=== PATIENT | male | born 1955 | race African-American/Black ===

== ENCOUNTER 2016-10-27 12:14 | Emergency (ER) | payer OTHER, MEDICAID ==
[~2016-10-27] VITALS: Ht 175.3 cm; Wt 109.0 kg
[~2016-10-27 12:14] MED LIST: HYDR-4133 PO; LOSA25TA12 PO
[2016-10-27] MEDS ORDERED: FAMOTIDINE 20MG TABLET PO ONE (15:45)
[2016-10-27] MEDS ORDERED: ACETAMINOPHEN 325MG TABLET PO ONE (15:45)
[2016-10-27 16:30] LABS: BASOPHILS % 0.7 % (0.0-2.0); HEMOGLOBIN. 12.7 g/dL (14.0-18.0); LYMPHOCYTES % 10.3 % (20.0-50.0); MEAN CORPUSCULAR HEMOGLOBIN 26.6 pg (28.0-32.0); MEAN CORPUSCULAR VOLUME 81.8 fL (80.0-94.0); MEAN PLATELET VOLUME 8.4 fl (7.4-10.4); MONOCYTES % 4.8 % (2.0-8.0); NEUTROPHILS % 84.2 % (40.0-76.0); PLATELET 265 x1000/uL (130-400); RED BLOOD CELL COUNT 4.76 mill/uL (4.7-6.1); RED CELL DISTRIBUTION WIDTH 17.9 % (11.6-14.6)
[2016-10-27 16:40] VITALS: BP 149/84
[2016-10-27 16:44] LABS: CARBON DIOXIDE 31 mEq/L (21-32); CHLORIDE 105 mEq/L (98-107)
== END 2016-10-27 16:58 | disposition home or self-care (01) ==
LOC: ER 12:34
DX: R11.0 Nausea (principal); R10.9 Unspecified abdominal pain; I10 Essential (primary) hypertension
CPT/HCPCS: 36415; 80053; 83690; 85025; 93005; 99285